=== PATIENT | female | born 1960 | race Caucasian/White ===

== ENCOUNTER 2017-05-22 16:31 | Emergency (ER) | payer OTHER ==
--- NOTE | 2017-05-22 16:43 | PDOC ---
History of Present Illness - History of Present Illness Initial Comments: 05/22/17 17:40 The patient is a 57 year old female, with no significant past medical history, who presents to the emergency room complaining of right wrist pain s/p falling on the concrete prior to arrival. The patient reports she fell from standing onto her right wrist and states the pain is constant and radiates to the right elbow. The patient states she is right hand dominant. She denies hitting her head or loss of consciousness. She denies loss of sensation. She denies recent fevers, chills, headache or dizziness. She denies recent nausea, vomit, diarrhea or constipation. She denies recent chest pain or shortness of breath. Allergies: NKA Past surgical history: None reported. Primary Care Physician: Dr. Bhavana Patel. <Cezar Hernandes - Last Filed: 05/22/17 19:22> - General History Source: Patient Exam Limitations: No Limitations <Gerson Bright - Last Filed: 05/22/17 19:35> - General Chief Complaint: Injury Stated Complaint: RIGHT WRIST PAIN S/P FALL Time Seen by Provider: 05/22/17 16:35 Past History <Cezar Hernandes - Last Filed: 05/22/17 19:22> - Suicide/Smoking/Psychosocial Hx Smoking History: Never smoked Have you smoked in the past 12 months: No Hx Alcohol Use: No Drug/Substance Use Hx: No Substance Use Type: None <Gerson Bright - Last Filed: 05/22/17 19:35> - Past Medical History Allergies/Adverse Reactions: Allergies Allergy/AdvReac Type Severity Reaction Status Date / Time No Known Allergies Allergy Verified 05/22/17 16:56 Home Medications: Ambulatory Orders Clonazepam [Klonopin] 0.5 mg PO HS 06/23/15 Venlafaxine HCl [Effexor -] 300 mg PO HS 06/23/15 Naproxen [Naprosyn -] 500 mg PO BID PRN #20 tablet 05/22/17 Oxycodone HCl/Acetaminophen [Percocet 5-325 mg Tablet] 1 tab PO Q6H PRN #20 tablet MDD 4 05/22/17 Review of Systems - Review of Systems Comments:: 05/22/17 17:40 GENERAL/CONSTITUTIONAL: No fever or chills. No weakness. HEAD, EYES, EARS, NOSE AND THROAT: No change in vision. No ear pain or discharge. No sore throat. CARDIOVASCULAR: No chest pain or shortness of breath. RESPIRATORY: No cough, wheezing, or hemoptysis. GASTROINTESTINAL: No nausea, vomiting, diarrhea or constipation. GENITOURINARY: No dysuria, frequency, or change in urination. MUSCULOSKELETAL: +Pain in the right wrist radiating to the right elbow. SKIN: No rash NEUROLOGIC: No headache, vertigo, loss of consciousness, or change in strength/ sensation. ENDOCRINE: No increased thirst. No abnormal weight change. HEMATOLOGIC/LYMPHATIC: No anemia, easy bleeding, or history of blood clots. ALLERGIC/IMMUNOLOGIC: No hives or skin allergy. <Cezar Hernandes - Last Filed: 05/22/17 19:22> *Physical Exam - Vital Signs Last Vital Signs Temp Pulse Resp BP Pulse Ox 98.1 F 80 16 109/54 100 05/22/17 16:32 05/22/17 16:32 05/22/17 16:32 05/22/17 16:32 05/22/17 16:32 - Physical Exam Comments: 05/22/17 17:41 GENERAL: Awake, alert, and fully oriented. HEAD: No signs of trauma EYES: PERRLA, EOMI, sclera anicteric, conjunctiva clear ENT: Auricles normal inspection, hearing grossly normal, nares patent, oropharynx clear without exudates. Moist mucosa NECK: Normal ROM, supple, no lymphadenopathy, JVD, or masses EXTREMITIES: +Right wrist sensation intact and able to move all digits of right hand. +Slight volar angulation of the right hand with tenderness at the distal wrist. No broken skin. NEUROLOGICAL: Cranial nerves II through XII grossly intact. Normal speech, normal gait SKIN: Warm, Dry, normal turgor, no rashes or lesions noted. <Cezar Hernandes - Last Filed: 05/22/17 19:22> Procedures - Splinting Splint Location: Right: Wrist Pre-Proc Neuro Vasc Exam: normal Hand-Made Type: orthoglass Splint Type: Yes: Sugar Tong Post-Proc Neuro Vasc Exam: normal, unchanged from pre-exam Tre Bandage: 4" Sling: Yes Complications: No Post splint xray: Yes Good repositioning: Yes <Gerson Bright - Last Filed: 05/22/17 19:35> ED Treatment Course - Medications Given in the ED: ED Medications Discontinued Medications Generic Name Dose Route Start Last Admin Trade Name Mila PRN Reason Stop Dose Admin Oxycodone/Acetaminophen 2 combo 05/22/17 16:35 05/22/17 16:41 Percocet 5/325 - PO 05/22/17 16:36 2 combo ONCE ONE Administration <Cezar Hernandes - Last Filed: 05/22/17 19:22> - RADIOLOGY Radiology Studies Ordered: Category Date Time Status WRIST- RIGHT [RAD] Stat Radiology 05/22/17 16:35 Ordered <Gerson Bright - Last Filed: 05/22/17 19:35> Medical Decision Making - Medical Decision Making 05/22/17 18:27 Unable to reach Ortho Dr. Dumont at [phone] due to busy dial tone. Multiple attempts from 5:30pm to 6:20 pm but only received a busy dial tone each time. Attempted to contact [facility] at [phone] at 6:15 pm however received busy dial tone as well. Page sent to Dr. Orona at 6:24 pm. 05/22/17 19:23 Dr. Orona returned call at 7:23 pm. <Cezar Hernandes - Last Filed: 05/22/17 19:22> - Medical Decision Making 05/22/17 16:44 A portion of this note was documented by scribe services under my direction. I have reviewed the details of the note, within reason, and agree with the documentation with the following case summary and management plan written by me. Patient treated in the ED. Nursing notes are reviewed and incorporated into the medical decision-making. Vital signs reviewed. Peripheral IV access obtained by the nurse, laboratory studies are drawn and sent, reviewed and interpreted by myself. 57-year-old female with no medical history, [id number], presents with mechanical fall onto an outstretched hand. Patient denies other injuries. She complains of right wrist pain. She is neurovascularly intact with 2+ radial pulse able to move all digits. We'll obtain a right wrist x-ray and reduced and splinted necessary. Pain control and reassess. 05/22/17 19:07 Initial radiograph demonstrated a distal radius fracture. Pt consents for hematoma block and reduction. 15 cc of 2% lidocaine without epi injected with excellent anesthesia. Traction was applied and a sugar tong splint, and sling was applied. Post reduction xray demonstrates persistent fractures and improved alignment. We had attempted to page Dr. Oswald and Dr. Sesay's group, awaiting phone call back. However, will have patient discharged and have them call to schedule a follow up appointment. I discussed the physical exam findings, ancillary test results and final diagnoses with the patient. I answered all of the patient's questions. The patient was satisfied with the care received and felt comfortable with the discharge plan and treatment plan. The patient will call their primary care physician within 24 hours to arrange follow-up and will return to the Emergency Department with any new, persistant or worsening symptoms. <Gerson Bright - Last Filed: 05/22/17 19:35> *DC/Admit/Observation/Transfer - Attestations Scribe Attestion: 05/22/17 17:41 Documentation prepared by Cezar Hernandes, acting as medical officer for Gerson Bright MD. <Cezar Hernandes - Last Filed: 05/22/17 19:22> <Gerson Bright - Last Filed: 05/22/17 19:35> Diagnosis at time of Disposition: Radius fracture Qualifiers: Encounter type: initial encounter Radius location: distal Fracture type: closed Fracture morphology: unspecified fracture morphology Laterality: right Qualified Code(s): S52.501A - Unspecified fracture of the lower end of right radius, initial encounter for closed fracture - Discharge Dispostion Disposition: HOME Condition at time of disposition: Stable - Prescriptions Prescriptions: Naproxen [Naprosyn -] 500 mg PO BID PRN #20 tablet PRN Reason: Pain Oxycodone HCl/Acetaminophen [Percocet 5-325 mg Tablet] 1 tab PO Q6H PRN #20 tablet MDD 4 PRN Reason: Pain - Referrals Referrals: Bhavana Patel MD [Primary Care Provider] - Moe Orona MD [Staff Physician] - - Patient Instructions Printed Discharge Instructions: How to Use a Sling, DI for Wrist Fracture Additional Instructions: Take 500 mg naproxen every 12 hours as needed for pain. Take a tablet of percocet every 6 hours as needed for severe pain. Elevate the arm as much as you can. Ice as needed. Do not take off the splint. It is very important that you do not take your splint off. Follow up with orthopedics. Call to schedule an appointment this week. We have spoken to Dr. Orona. Dr. Orona wants to see you tomorrow morning at 11:45 am. Please call the toll test desk worker at 9 am and inform the desk that Dr. Orona specifically requests you to be followed up.
[2017-05-22 17:03] VITALS: BP 109/54; PULSE 80; TEMP 98.1; BMI 25.2
[2017-05-22] MEDS ORDERED: LIDOCAINE HCL 2% (20ML MULTI-DOSE VIAL) NR ONE (17:34)
== END 2017-05-22 19:36 | disposition home or self-care (01) ==
LOC: SUPCPDRO 16:31 → FER 16:31
PROC: 0PSHXZZ Reposition Right Radius, External Approach (ICD-10-PCS; principal; 2017-05-22)
DX: S52.501A Unspecified fracture of the lower end of right radius, initial encounter for closed fracture (principal); W18.39XA Other fall on same level, initial encounter; Y93.89 Activity, other specified; Y92.9 Unspecified place or not applicable
CPT/HCPCS: 73110-TC-RT; 99283-25

== ENCOUNTER 2017-05-25 06:40 | Day surgery (SDC) | payer OTHER ==
[2017-05-24 11:24] VITALS: BMI 26.4
[2017-05-25] MEDS ORDERED: MIDAZOLAM HCL 2 MG/2 ML SINGLE DOSE VIAL ONE ×2 (07:52)
[2017-05-25] MEDS ORDERED: ceFAZolin SODIUM 1 GM VIAL IVPB ONE (08:23)
--- NOTE | 2017-05-25 09:24 | HP ---
Satellite H - Chief Complaint Chief Complaint: right wrist fx - Past Medical History Allergies/Adverse Reactions: Allergies Allergy/AdvReac Type Severity Reaction Status Date / Time No Known Allergies Allergy Verified 05/25/17 07:32 ...LMP: 05/09/17 - Current Medications Current Medications: Home Medications Medication Instructions Recorded Clonazepam [Klonopin] 0.5 mg PO HS 06/23/15 Venlafaxine HCl [Effexor -] 300 mg PO HS 06/23/15 Acetaminophen [Tylenol 1,000 mg PO PRN PRN 05/24/17 .Extra-Strength -] Hydrocodone/Acetaminophen [Vicodin 1 - 2 each PO Q6H PRN #40 tab MDD 6 05/25/17 5-300 mg Tablet] Satellite Physical Exam - Physical Examination Vital Signs: Vital Signs Period Temp Pulse Resp BP Sys/Minor Pulse Ox Last 24 Hr 98.0 F-98.0 F 89-89 20-20 132-132/82-82 97 General Appearance: Well Nourished, Well Developed, Alert & Oriented x3 ENT: Clear Lung: Normal air movement Heart: Regular rate & rhythm Extremities: Other (right wrist- splint intact, + swelling, + ttp, decr rom, nvi xrays show displaced intraarticular distal radius fx) Neurological: Intact, Alert, Oriented Satellite Impression/Plan - Impression/Plan Impression: right distal radius fx Operative Procedure: right distal radius orif Date to be Performed: 05/25/17
--- NOTE | 2017-05-25 09:26 | OP ---
Operative Note - Note: Operative Date: 05/25/17 ([facility]) Pre-Operative Diagnosis: right distal radius fx Operation: right distal radius orif Post-Operative Diagnosis: Same as Pre-op Surgeon: Moe Orona Filling Mixer: Wilmer Sesay Anesthesia: General, Local Estimated Blood Loss (mls): 0 (tourniquet) Operative Report Dictated: Yes
--- NOTE | 2017-05-25 10:04 | OP ---
Operative Note - Note: Operative Date: 05/25/17 Pre-Operative Diagnosis: right distal radius fracture Operation: right distal radius ORIF Implants: [employer] low profile DVR titanium plate, 7 screws Post-Operative Diagnosis: Same as Pre-op Surgeon: Moe Orona Rail Track Maintainer: Wilmer Sesay Anesthesiologist/INSTRUCTOR PILOT: Jay Anderson Anesthesia: Local, MAC Estimated Blood Loss (mls): 0 Drains, Volume Out (mls): 0 Blood Volume Replaced (mls): 0 Fluid Volume Replaced (mls): 500 Operative Report Dictated: Yes
[2017-05-25] MEDS ORDERED: ONDANSETRON 4 MG/2 ML VIAL ONE (10:05)
[2017-05-25 10:14] VITALS: TEMP 97.8
[2017-05-25] MEDS ORDERED: oxyCODONE HCL 5 MG TABLET PO PRN (10:15)
[2017-05-25] MEDS ORDERED: LACTATED RINGERS SOLUTION 1,000 ML IV SCH (10:15)
[2017-05-25] MEDS ORDERED: ONDANSETRON 4 MG/2 ML VIAL IVPUSH PRN (10:15)
[2017-05-25] MEDS ORDERED: DEXAMETHASONE SOD PHOSPHATE 4 MG/1 ML VIAL IVPUSH ONE (10:16)
--- NOTE | 2017-05-25 10:39 | SPEC ---
DATE OF OPERATION: 05/25/2017 PREOPERATIVE DIAGNOSIS: Right distal radius fracture, comminuted, intraarticular, and displaced. POSTOPERATIVE DIAGNOSIS: Right distal radius fracture, comminuted, intraarticular, and displaced. PROCEDURE: Right distal radius open reduction, internal fixation/ORIF. SURGEON: Moe Orona MD PUBLIC RELATIONS COORDINATOR: Wilmer Sesay MD PUBLIC RELATIONS COORDINATOR: Jay Anderson, FUSE CUTTER, right interscalene block, MAC anesthesia. DRAINS: None. COMPLICATIONS: None. SPECIMENS: None. FLUID REPLACEMENT: 500 mL. BLOOD LOSS: None. BLOOD GIVEN: None. INDICATION: This patient is a 57-year-old female with a preoperative diagnosis of a comminuted intraarticular displaced right distal radius fracture. After understanding the potential risks, complications, alternatives, benefits to surgical versus nonsurgical treatment, the patient elected to undergo this procedure. She understands she may develop posttraumatic arthritis. She may develop stiffness. She may need physical therapy. There is a lifelong risk of infection. She may need the hardware removed at some point. She understands this, and all other questions and concerns were addressed. HARDWARE: I used a standard [employer] low-profile DVR plate. I used 4 distal partially threaded locking screws of 16, 22, 22, and 24 mm in length. I used 3 proximal 2.5-mm screws which were 12, 12, and 14 mm in length. DESCRIPTION OF PROCEDURE: The entire case was done under 3.8 loupe magnification. Typical FCR approach was marked out with a marking pen and incision made with No. 15 scalpel blade. Subcutaneous hemostasis was achieved with a bipolar cautery. The radial artery was retracted gently in a radial direction and ulnar to this, using a fresh No. 15 scalpel blade, the muscular fascia was incised. Blunt dissection was done with my index finger down to the volar aspect of the distal radius. Weitlaner retractors were placed deep into the wound for visualization. A periosteal elevator was used to do subperiosteal dissection exposing the fracture site. There was a main transverse component to the distal radius fracture but in addition there were several pieces, some extending towards the radial carpal joint and some towards the distal radial ulnar joint. The fracture site was copiously irrigated and washed out. All debris including hematoma and muscle were removed. A provisional reduction was performed and seemed to come together quite nicely. There was a small metaphyseal defect. X-rays were taken in A-P and lateral planes documenting excellent position of the fracture fragments, restoring radial height inclination and volar tilt. Next a standard [employer] left volar low profile DVR plate was placed on the volar aspect of the distal radius. Two K-wires were placed and x-rays were taken documenting excellent position, length and subchondral position. Next the central 3.5 mm screw was placed in a standard fashion, this was 14 mm in length, and the second-most ulnar proximal row screw was placed. This was a 24 mm partially threaded locking screw. X-rays again were taken documenting excellent position and support of the subchondral bone. The rest of the screws were then put in, first 2 additional purple proximal screws of 12 and 14 mm in length for 6 cortices proximally and then the silver drill bit was used to put in the remaining 6 screws of both the proximal and distal row from 18 mm to 24 mm of length, all partially threaded locking screws. All of the guides were removed and passed off the field. Final x-rays were taken in A-P and lateral planes. I was quite happy with the fracture reduction position, position of the radial carpal joint, distal radial ulnar joint length, height and tilt. TOTAL TOURNIQUET TIME: 59 minutes. There were no complications during the case. The patient tolerated the procedure quite well, was brought to the ambulatory recovery in stable condition. Elver [id number]
[2017-05-25 15:01] VITALS: BP 120/66; PULSE 80
== END 2017-05-25 14:30 | disposition home or self-care (01) ==
LOC: JASU-SURG 06:40
PROVIDERS: ATTEND Orthopaedic Surgery
PROC: 0PSH04Z Reposition Right Radius with Internal Fixation Device, Open Approach (ICD-10-PCS; principal; 2017-05-25 08:00)
DX: S52.571A Other intraarticular fracture of lower end of right radius, initial encounter for closed fracture (principal); X58.XXXA Exposure to other specified factors, initial encounter; Y93.9 Activity, unspecified; Y92.9 Unspecified place or not applicable; Y99.9 Unspecified external cause status
CPT/HCPCS: 84703; 94760